=== PATIENT | female | born 1955 | race Caucasian/White ===

== ENCOUNTER 2019-01-30 10:36 | Emergency (ER) | payer OTHER ==
[~2019-01-30] VITALS: Ht 152.4 cm; Wt 136.8 kg
[~2019-01-30 10:36] MED LIST: CEPH-443 PO
[2019-01-30 10:41] VITALS: Ht 152.4 cm; Wt 136.8 kg
[2019-01-30 12:53] VITALS: BP 140/70; PULSE 88; RESP 18
[2019-01-30] MEDS ORDERED: LIDOCAINE 1% (MDV) 20 ML INJ SC ONE (13:00)
[2019-01-30] MEDS ORDERED: CEFTRIAXONE 1 GM INJ IM ONE (13:00)
== END 2019-01-30 12:53 | disposition home or self-care (01) ==
LOC: FTE 10:36
DX: N39.0 Urinary tract infection, site not specified (principal); E11.9 Type 2 diabetes mellitus without complications
CPT/HCPCS: 81003; 82962; 87086; 96372; J0696; Z7502; Z7610